=== PATIENT | male | born 2000 | race Caucasian/White ===

== ENCOUNTER 2024-06-16 04:49 | Emergency (ER) | payer MEDICAID, SELFPAY ==
--- NOTE | ~2024-06-16 | XR_ITS ---
Portable chest x-ray Comparison: None Clinical History: Chest tightness Findings: Lungs are clear, without focal consolidation or pleural effusion. Cardiomediastinal silho uette is unremarkable. Bones and soft tissues are unremarkable. Impression: Normal chest. Reviewed, dictated and finalized at location . ETING OPERATIONS ANALYST Impression: Normal chest.
[2024-06-16 04:52] VITALS: BP 130/88; PULSE 85; RESP 14; O2SAT 98
--- NOTE | 2024-06-16 04:55 | ED_ITS ---
HPI - General Adult General Chief complaint: Anxiety Stated complaint: Anxiety, Nausea Time Seen by Provider: 06/16/24 05:07 History of Present Illness HPI narrative: This is a 24-year-old male with history of anxiety presenting for anxiety. Patient is trying to go to sleep his mind was racing. This caused him to have an episode of nausea and vomiting and some chest tightness. Patient denies any fevers chills shortness of breath abdominal pain or URI symptoms. Patient is on hydroxyzine for his anxiety. He has appointment sees psychiatrist next week. No SI HI. Related Data Allergies Allergy/AdvReac Type Severity Reaction Status Date / Time No Known Allergies Allergy Unverified 04/05/14 17:03 [facility] Social History Social History Substance use type: does not use Exam Narrative: APPEARANCE: Anxious appearing Head: atraumatic. EYES: EOMI, NOSE: Atraumatic NECK: Trachea midline RESPIRATORY: No increased rate of breathing CTAB CARDIOVASCULAR: RRR, no peripheral edema ABDOMINAL: Non-distended soft nontender MUSCULOSKELETAl: No obvious deformities NEURO: Alert. Moving 4/4 extremities SKIN:: Warm, dry. Normal color PSYCHIATRIC: Anxious appearing Course Vital Signs Vital signs: Vital Signs Pulse Rate 85 06/16/24 04:52 Respiratory Rate 14 06/16/24 04:52 Blood Pressure 130/88 06/16/24 04:52 Pulse Oximetry 98 06/16/24 04:52 Oxygen Delivery Room Air 06/16/24 04:52 Pulse Rate 81 06/16/24 04:59 Respiratory Rate 18 06/16/24 04:59 Blood Pressure 130/88 06/16/24 04:59 Pulse Oximetry 100 06/16/24 04:59 Oxygen Delivery Room Air 06/16/24 04:52 Medical Decision Making [facility] Narrative Medical decision making narrative: -Course: 24-year-old male with anxiety presenting with increased anxiety. Chest x-ray and EKG unremarkable. No concerning findings on history and physical. Given Valium with improvement. Discharged follow-up with a psychiatrist. Given return precautions. Vital Signs Vital Signs: Vital Signs Pulse Rate 85 06/16/24 04:52 Respiratory Rate 14 06/16/24 04:52 Blood Pressure 130/88 06/16/24 04:52 Pulse Oximetry 98 06/16/24 04:52 Oxygen Delivery Room Air 06/16/24 04:52 Pulse Rate 81 06/16/24 04:59 Respiratory Rate 18 06/16/24 04:59 Blood Pressure 130/88 06/16/24 04:59 Pulse Oximetry 100 06/16/24 04:59 Oxygen Delivery Room Air 06/16/24 04:52 Discharge Plan Discharge Clinical Impression: Acute anxiety Patient Disposition: Home, Self-Care Condition: Stable Instructions: Antibiotic Form, Anxiety (ED) Additional Instructions: Please follow-up with your psychiatrist for further management. If you develop thoughts of harming herself or others return to the ED. Patient Language: Setswana
[2024-06-16 04:59] VITALS: BP 130/88; PULSE 81; RESP 18; O2SAT 100
[2024-06-16] MEDS: diazePAM INJ (*CRX) 10 MG/2 ML SYRINGE 5 MG IV PUSH (05:00)
--- NOTE | 2024-06-16 05:05 | ECG_ITS ---
Test Date: 2024-06-16 05:05:02 Measurements Intervals [place] Rate: 82 P: 87 TX: 132 QRS: 87 QRSD: 93 T: 54 QT: 341 QTc: 399 Interpretive Statements SINUS RHYTHM VOLTAGE CRITERIA FOR LVH ST ELEVATION IN ANTEROLAT/INF LEADS, PROBABLY EARLY REPOLARIZATION BASELINE ARTIFACT- I, II, III, AVR, AVL, AVF, V1-V6 BORDERLINE ECG No previous ECG available for comparison Electronically Signed On 06-16-2024 08:17:22 [employer] by Waldemar Lobo D.O.
--- OUTSIDE RECORDS SUMMARY | 2024-06-16 05:42 | XMS_ITS | Referral Summary ---
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 Role Phone Kiel Taylor MD Primary Care Provider [phone] Encounters Date Type Department Care Team Description 06/14/2024 Results Follow-Up [facility] Primary Care at [address] [place] [phone] Kiel Taylor MD 06/11/2024 Telephone [facility] Primary Care at [address] [place] [phone] Kiel Taylor MD 06/10/2024 Telephone [facility] Medical [facility] Primary Care at [address] [place] [phone] Kiel Taylor MD Recommendation Request 06/08/2024 2:20 PM WAIST PLEATER Lab [facility] [address] [place] [address] Fatigue, unspecified type; Excessive daytime sleepiness; Vitamin B12 deficiency; Vitamin D deficiency 06/08/2024 1:30 PM WAIST PLEATER Office Visit [facility] Gastroenterology at [address] [place] [phone] Helen Whitehead MD Nausea and vomiting, unspecified vomiting type (Primary Dx); Abdominal pain; Early satiety; Gastroesophageal reflux disease without esophagitis 06/04/2024 Orders Only [facility] Primary Care at [address] [phone] Kiel Taylor MD Anxiety (Primary Dx); PTSD (post-traumatic stress disorder) 06/02/2024 Telephone [facility] Primary Care at [address] [phone] Kiel Taylor MD Recommendation Request 06/02/2024 Orders Only [facility] Primary [facility] at [address] [phone] Kiel Taylor MD Abdominal pain; Early satiety; Gastroesophageal reflux disease without esophagitis; Fatigue, unspecified type; Positive LANI (antinuclear antibody); Weakness; Excessive daytime sleepiness; Tachycardia; Chest pain, unspecified type; Abnormal EKG; LVH (left ventricular hypertrophy) 06/02/2024 9:45 AM WAIST PLEATER Office Visit [facility] at [address] [phone] Kiel Taylor MD Annual physical exam (Primary Dx); Abdominal pain; Early satiety; Gastroesophageal reflux disease without esophagitis; Body mass index (BMI) less than 16.5; Laryngopharyngeal reflux (LPR); Excessive daytime sleepiness; Tachycardia; Abnormal EKG; LVH (left ventricular hypertrophy) 05/27/2024 Orders Only [facility] at [address] [phone] Kiel Taylor MD PTSD (post-traumatic stress disorder) (Primary Dx); Anxiety 05/27/2024 Telephone [facility] at [address] [phone] Kiel Taylor MD Referral Request from Last 3 Months Allergies No known active allergies Medications ondansetron (ZOFRAN) 4 mg tablet Take 1 tablet (4 mg total) by mouth every 8 (eight) hours as needed for nausea or vomiting 40 tablet 1 3 Active escitalopram (LEXAPRO) 20 mg tablet Take 1 tablet (20 mg total) by mouth daily 30 tablet 11 3 Active mirtazapine (REMERON) 7.5 mg tablet Take 1 tablet (7.5 mg total) by mouth nightly 90 tablet 4 Active Additional Information Patient not taking.Reported on 01/20/2024 hydrOXYzine (ATARAX) 25 mg tablet TAKE 1 TABLET(25 MG) BY MOUTH TWICE DAILY NEEDED FOR ANXIETY OR INSOMNIA 100 tablet [address] (PROTONIX) 40 mg EC tablet TAKE 1 TABLET(40 MG) BY MOUTH TWICE DAILY 200 tablet 1 5 Active sucralfate (CARAFATE) 1 gram tablet Take 1 tablet (1 g total) by mouth 4 (four) times a day for 14 days 56 tablet 5 Active cyanocobalamin (Vitamin B-12) 1,000 mcg tabletIndicati ons:Prevention of Vitamin B12 Deficiency Take 1 tablet (1,000 mcg total) by mouth daily 90 tablet 1 5 11/30/19 25 Active ergocalciferol (VITAMIN D) 50,000 unit capsule Take 1 capsule (50,000 Units total) by mouth once a week 12 capsule 4 5 06/02/19 26 Active metoclopramide (REGLAN) 10 mg tablet Take 1 tablet (10 mg total) by mouth 3 (three) times a day before meals 90 tablet 2 5 Active ergocalciferol (VITAMIN D) 50,000 unit capsule Take 1 capsule (50,000 Units total) by mouth once a week 12 capsule 4 3 06/02/19 25 Discontin ued(Reord er) cyanocobalamin (Vitamin B-12) 1,000 mcg tabletIndicati ons:Prevention of Vitamin B12 Deficiency Take 1 tablet (1,000 mcg total) by mouth daily 90 tablet 1 3 06/02/19 25 Discontin ued(Reord er) Active Problems Problem Noted Date Diagnosed Date Protein-calorie malnutrition, mild 06/12/2023 Depression 10/30/2022 Assessment & Plan (06/12/2023 11:44 AM WAIST PLEATER): Not at goal at this time For now continue escitalopram 20 mg every day, atarax [address] mg [address] new referral to psychaitry Fatigue 09/03/2022 Assessment & Plan (01/20/2024 2:38 PM CDT): Lab Results Component Value Date WBC 7.5 02/17/2023 HGB 16.6 02/17/2023 HCT 48.7 02/17/2023 MCV 85.7 02/17/2023 LABPLAT 323 02/17/2023 Normal labs, low vitamins/vit def Check new labs PTSD (post-traumatic stress disorder) 07/17/2022 Assessment & Plan (01/20/2024 2:38 PM CDT): Not at goal at this time For now continue escitalopram 20 mg every day, atarax 25 mg every day Will place new referral to psychaitry Assessment & Plan (06/12/2023 11:44 AM WAIST PLEATER): Not at goal at this time For now continue escitalopram 20 mg every day, atarax 25 mg every day Will place new referral to psychaitry Assessment & Plan (07/17/2022 2:10 PM CDT): Would recommend he continue therapy Starting ssri now - lexapro 10 mg every day rtc in 4 weeks Referral to psychiatry placed Other insomnia 05/06/2022 Assessment & Plan (09/23/2022 9:15 AM CDT): Hopefully will improve with treatment of his anxiety increased dose of escitalopram Assessment & Plan (05/06/2022 2:52 PM WAIST PLEATER): Not sleeping well but has been seeing a therapist, can try trazadone prn Anxiety 05/06/2022 Assessment & Plan (02/26/2023 12:20 PM CDT): C/w lexapro 20 mg every day and atarax 25 mg bid pern Stopped taking ambien and buspar prescribed by dr. Zaragoza due to feeling sluggish and tired But also noted to be vit d and vit b12 def Assessment & Plan (09/23/2022 9:14 AM CDT): Increase escitalopram to 20 mg daily. Recommend exercise and counseling. Assessment & Plan (07/17/2022 2:11 PM CDT): Started counselling at [facility] which didn't really help States that he was dx with anxiety and ptsd but was not able to get with psychaitry Will start lexapro 10 mg every day Assessment & Plan (05/06/2022 2:51 PM WAIST PLEATER): Stable at this time but having sleeping issues. States that he started seeing a counsellor at [facility] Annual physical exam 05/06/2022 Assessment & Plan (06/12/2023 11:43 AM WAIST PLEATER): Discussed lifestyle modifications, diet and exercise. Routine blood work ordered/reviewed today. Yearly vision and dental examinations. Assessment & Plan (05/06/2022 2:55 PM WAIST PLEATER): Discussed lifestyle modifications, diet and exercise. Routine blood work ordered/reviewed today. Yearly vision and dental examinations. Nasal mucositis (ulcerative) 12/06/2021 Assessment & Plan (05/06/2022 2:49 PM WAIST PLEATER): Stable following with ENT, recommend he follows up as he states that he still having issues Assessment & Plan (12/06/2021 3:55 PM CDT): Nasal saline spray (Simply saline, [employer], [place], [place]) 2 second sprays or 2 squeezes into each nostril while looking down over the sink, do not need to sniff in. Aquaphor apply pea-size amount into each nostril with a cotton tipped applicator, being carefully just to tuck it into each nostril, then massage soft portion of the outer nose to massage the ointment around inside the nose twice daily for at least 6 weeks May continue Neti-pot as needed Consider Bactroban if no improvement Body mass index (BMI) less than 16.5 11/13/2021 Assessment & Plan (06/02/2024 10:02 AM WAIST PLEATER): Wt Readings from Last 3 Encounters: 06/02/24 56.7 kg (125 lb 1.6 oz) 01/20/24 56.2 kg (123 lb 14.4 oz) 06/12/23 56 kg (123 lb 8 oz) BMI Readings from Last 3 Encounters: 06/02/24 17.46 kg/m 01/20/24 17.29 kg/m 06/12/23 17.23 kg/m Has gained some weight from previous, now above bmi 16.5. continue increasing caloric intake - follow up with GI Assessment & Plan (08/22/2022 1:44 PM CDT): Wt Readings from Last 3 Encounters: 08/22/22 54 kg (119 lb) 08/13/22 54.4 kg (120 lb) 07/17/22 55.3 kg (122 lb) BMI Readings from Last 3 Encounters: 08/22/22 16.60 kg/m 08/13/22 16.74 kg/m 07/17/22 17.08 kg/m Has gained some weight from previous, now above bmi 16.5. continue increasing caloric intake - follow up with GI Assessment & Plan (05/06/2022 2:34 PM WAIST PLEATER): Wt Readings from Last 3 Encounters: 05/06/22 56.2 kg (124 lb) 12/06/21 54.4 kg (119 lb 14.4 oz) 11/13/21 53.6 kg (118 lb 3.2 oz) BMI Readings from Last 3 Encounters: 05/06/22 17.29 kg/m 12/06/21 16.72 kg/m 11/13/21 16.49 kg/m Has gained some weight from previous, now above bmi 16.5. continue increasing caloric intake - follow up with GI Assessment & Plan (11/13/2021 11:27 AM CDT): Need to investigate further - check labs - refer to nutrition - may need to refer to GI as well Early satiety 11/13/2021 Other dysphagia 11/13/2021 Assessment & Plan (08/22/2022 1:49 PM CDT): Unsure of cause Negative egd Nothing to explain dysphagia Could be psychosomatic States that sx have improved Still has some stomach burnign and discomfort but n/v has improved Underweight 11/13/2021 Assessment & Plan (01/20/2024 2:38 PM CDT): Wt Readings from Last 3 Encounters: 01/20/24 56.2 kg (123 lb 14.4 oz) 06/12/23 56 kg (123 lb 8 oz) 02/26/23 54.4 kg (120 lb) BMI Readings from Last 7 Encounters: 01/20/24 17.29 kg/m 06/12/23 17.23 kg/m 02/26/23 16.74 kg/m 09/03/22 16.33 kg/m 08/22/22 16.60 kg/m 08/13/22 16.74 kg/m 07/17/22 17.08 kg/m Weight appears stable in the last 1 year - bmi fluctuates from 16.5 to 17 Assessment & Plan (08/22/2022 1:45 PM CDT): Wt Readings from Last 3 Encounters: 08/22/22 54 kg (119 lb) 08/13/22 54.4 kg (120 lb) 07/17/22 55.3 kg (122 lb) BMI Readings from Last 7 Encounters: 08/22/22 16.60 kg/m 08/13/22 16.74 kg/m 07/17/22 17.08 kg/m 05/06/22 17.29 kg/m 12/06/21 16.72 kg/m 11/13/21 16.49 kg/m 05/20/18 18.83 kg/m Weight appears stable in the last 1 year - bmi fluctuates from 16.5 to 17 Assessment & Plan (05/06/2022 2:36 PM WAIST PLEATER): unsure if related to dysphagia, he never had his barium swallow done but has gained some weight Assessment & Plan (11/13/2021 11:26 AM CDT): Unsure of cause could be due to current dysphagia - will check labs, refer to ENT and nutrition Nasal obstruction without choanal atresia 2018 Internal nasal lesion 05/24/2018 Assessment & Plan (05/24/2018 3:34 PM WAIST PLEATER): Patient is noted to have a mild excoriation along the left side of the caudal septum. Silver nitrate cautery was performed today. Topical ointment is recommended daily for one week. Patient is advised to refrain from any digital irritation of the area to allow to heal. Non-seasonal allergic rhinitis 03/31/2018 Assessment & Plan (03/31/2018 11:19 AM WAIST PLEATER): Patient has a history of allergic rhinitis - he is unsure of specific triggers. Patient should continue with nasal spray and daily irrigation. Patient should start on zyrtec daily for relief of his symptoms. Patient educated on proper nasal administration as well as how to perform saline irrigation. Discussed possible RAST testing in the future. GERD (gastroesophageal reflux disease) 8 Assessment & Plan (06/02/2024 10:04 AM WAIST PLEATER): Worsening sx Will refer back to GI for eval Add carafate to regimen Continue protonix 40 mg qd Assessment & Plan (09/23/2022 9:15 AM CDT): Patient encouraged to stop drinking soda, decrease tomato products intake, stop vaping in decreasing alcohol intake. Try pantoprazole 40 mg twice daily. GI referral recommended. Follow-up in 3 months for physical and fasting lab sooner if needed Assessment & Plan (08/22/2022 1:46 PM CDT): Continue protonix 40 bid Assessment & Plan (07/17/2022 2:06 PM CDT): Works for [employer] Due to 90 probation period was unable to get his scope done States that still having same acid reflux problems but he thinks anxiety is worse also Assessment & Plan (05/06/2022 2:48 PM WAIST PLEATER): Worsening gerd sx which had improved previously with ppi - will increase to protonix 40 bid and see if he has relief. Can start carafate for now and refer back to gi Assessment & Plan (11/13/2021 11:25 AM CDT): States that he doesn't have any gerd symptoms at this time. Will refer back to ENT due to his sx Laryngopharyngeal reflux (LPR) 03/31/2018 Assessment & Plan (06/02/2024 10:04 AM WAIST PLEATER): Worsening sx Refer back to GI Assessment & Plan (05/06/2022 2:35 PM WAIST PLEATER): Referred to ENT but was not evaluated for such, was referred to gi for egd but was cancelled Continues to have sx Will increase his nexium to twice daily 40 mg and see if that improves sx. Assessment & Plan (11/13/2021 11:26 AM CDT): Refer back to ENT due to dysphagia Assessment & Plan (05/24/2018 3:34 PM WAIST PLEATER): No problems patient is doing well. Patient is maintaining compliance with his ranitidine. Assessment & Plan (03/31/2018 11:21 AM WAIST PLEATER): Patient with a history of reflux. Review of HPI and exam consistent with uncontrolled reflux. Patient to start on zantac 300mg BID. Patient also educated on the importance of lifestyle modifications. If symptoms do not improve a swallow study will be obtained for further evaluation. Patient to follow up in 2 months. Deviated nasal septum 01/15/2018 Assessment & Plan (02/04/2018 2:43 PM CDT): Patient is doing excellent. Both nasal passages were debrided of crusting along the inferior turbinates. Patient's nasal airway is much improved. Patient is very happy with the postoperative outcome. Patient is to continue with saline nasal sprays. Patient can follow back up as needed. Assessment & Plan (01/15/2018 4:47 PM CDT): Patient demonstrates a right deviation of the nasal septum with a posterior septal spur causing impairment of the nasal airway. Patient is also noted to have bilateral inferior turbinate hypertrophy affecting the nasal airway. Patient is noted to have significant nasal valvular collapse during inspiratory effort with a positive modified Aleyda maneuver. Based on patient's history with prolonged difficulty breathing through his nasal airway in conjunction with my physical findings patient meets indications undergo a nasal septal reconstruction, inferior turbinate reduction and nasal valvuloplasty using Laterra nasal implant. A thorough discussion took place with the patient today pertaining to my treatment recommendations. All questions were answered to what appeared to be patient's understanding and satisfaction. After the procedure was explained in full the potential risk, complications, benefits and alternatives patient would like to proceed. Patient will be scheduled in a timely fashion. Hypertrophy of inferior nasal turbinate 01/16/20 18 Collapse of nasal valve 01/15/2018 Immunizations Immunization Administration Dates Next Due DTaP 03/02/2003, 0,1998,07/10,1998 HPV, Quadrivalent 10/04/2014,04/26/2013 HPV9 09/09/2017 Hep A, Pediatric 09/04/2009 Hep B, Adolescent or Pediatric 1998,1997,1998 HiB 09/03/1999, 9,1998,05/19 IPV 03/02/2003, 0,1998,05/19 Influenza, Quadrivalent, Spl it, Intramuscular 01/28/2019 Influenza, Unspecified 06/02/2024(Deferr ed: Patient Refused),01/20/2024(Deferred: Patient Refused),06/12/2023(Deferred: Patient Refused),05/06/2022(Deferred: Patient Refused),02/26/2022,06/26/2021(Deferre d: Patient Refused) MMR 03/02/2003,04/05/1999 Meningococcal ACWY, Unspecified 09/04/2009 Meningococcal Conjugate (Menveo) 10/04/2014 Tdap 07/17/2022,09/04/2009 Varicella 03/28/2008,04/05/1999 Social History Tobacco Use Types Packs/Day Years Used Date Smoking Tobacco: Former Cigarettes Passive Smoke Exposure: Never Smokeless Tobacco: Never Tobacco Cessation:Counseling Given: Not Answered Comments:smoked marijuana not cigarettes Alcohol Use Standard Drinks/Week Comments No 0 (1 standard drink = 0.6 oz pur e alcohol) AUDIT-C Answer Date Recorded Q1: How often do you have a drink containing alc ohol? Never 08/13/2022 Average Number of Drinks Not on file 023 Frequency of Binge Drinking Not on file 07/27 PHQ-2 Answer Date Recorded PHQ-2 Total Score (If total score is 3 or more points, staff should administer the PHQ-9) 0 06/02/2024 Personal Safety Answer Date Recorded Have you ever been in or are you currently in a harmful physical or emotional relationship or is someone making you feel afraid or unsafe? Denies 08/13/2022 Sex and Gender Information Value Date Recorded Sex Assigned at Not on file Legal Sex Male 1:48 AM WAIST PLEATER Gender Identity Not on file Sexual Orientation Not on file Last Filed Vital Signs Vital Sign Reading Time Taken Comments Blood Pressure 124/89 06/08/2024 1:21 PM WAIST PLEATER Pulse 96 06/08/2024 1:21 PM WAIST PLEATER Temperature 36.8 C (98.2 F) 06/12/2023 11:26 AM WAIST PLEATER Respiratory Rate 16 06/02/2024 9:38 AM WAIST PLEATER Oxygen Saturation 98% 06/08/2024 1:21 PM WAIST PLEATER Inhaled Oxygen Concentration - - Weight 56.2 kg (123 lb 14.4 oz) 06/08/2024 1:21 PM WAIST PLEATER Height 177.8 cm (5' 10 ) 06/08/2024 1:21 PM WAIST PLEATER Body Mass Index 17.78 06/08/2024 1:21 PM WAIST PLEATER Plan of Treatment Not on file Medical Devices Implanted Type Area Insurance Associate Device Identifier Shelf Expiration Date Model / Serial / Lot Latera Absorbable Nasal Implant Implanted:Qty: 1 on 01/22/2018 by Alexsander Escalante DO at [facility] Bilateral: Nose Other 10/31/2018 [employer] / / [id number] Description:Latera Absorbabl e Nasal Implant by [employer] Procedures Procedure Name Priority Date/Time Associated Diagnosis Comments VITAMIN B12 Routine 06/08/2024 2:23 PM WAIST PLEATER Vitamin B12 deficiency VITAMIN D 25 HYDROXY Routine 06/08/2024 2:23 PM WAIST PLEATER Vitamin D deficiency VITAMIN B6 Routine 06/08/2024 2:23 PM WAIST PLEATER Vitamin B12 deficiency TESTOSTERONE, TOTAL AND FREE, SERUM Routine 06/08/2024 2:23 PM WAIST PLEATER Fatigue, unspecified type Excessive daytime sleepiness ECG 12-LEAD Routine 06/02/2024 10:27 AM WAIST PLEATER Tachycardia HEPATITIS C ANTIBODY Routine 01/27/2024 2:26 PM CDT Need for hepatitis B screening test from Last 3 Months or Most Recently Relevant to Health Maintenance Results * Vitamin D 25 hydroxy (06/08/2024 2:23 PM WAIST PLEATER) Vitamin D 25-OH 35 30 - 80 ng/mL Blood 06/08/2024 2:23 PM WAIST PLEATER 06/08/2024 3:23 PM WAIST PLEATER us Kiel Taylor MD LAB BLOOD ORDERABLES Final Resul t HOWIE DONALD ([place]) 1 [facility] Department of Laboratories [place], [place] [id number] * Testosterone, Total and Free, Serum (06/08/2024 2:23 PM WAIST PLEATER) Testosterone 584 240 - 950 ng/dL [facility]ly [facility] Lab Comment: ADDITIONAL INFORMATION Testing performed by Liquid Chromatography-Tandem Mass Spectrometry (LC-MS/MS). This test was developed and its performance characteristics determined by [facility] in a manner consistent with CLIA requirements. This test has not been cleared or approved by the U.S. Food and Drug Administration. Test Performed by: [facility] [address] [place] [address] News Content Specialist: Mara Flores Ph.D.; CLIA# [id number] Testosterone, free 14.4 5.05 - 19.8 ng/dL HOWIE DONALD ([place]) Comment: ADDITIONAL INFORMATION This test was developed and its performance characteristics determined by [facility] in a manner consistent with CLIA requirements. This test has not been cleared or approved by the U.S. Food and Drug Administration. Blood 06/08/2024 2:23 PM WAIST PLEATER 06/08/2024 3:23 PM WAIST PLEATER Kiel Taylor MD LAB BLOOD ORDERABLES Final Resul t Performing Organization Address [facility] Co de Phone Number HOWIE DONALD ([place]) [address] [place] [address] [place] [address] [place] ref Lab * Vitamin B6 (06/08/2024 2:23 PM WAIST PLEATER) Pyridoxal phosphate (Vit B6) 6 5 - 50 mcg/L [place] ref [facility] Comment: ADDITIONAL INFORMATION This test was developed and its performance characteristics determined by [facility] in a manner consistent with CLIA requirements. This test has not been cleared or approved by the U.S. Food and Drug Administration. Test Performed by: [facility] [place] [address] News Content Specialist: Mara Flores Ph.D.; CLIA# [id number] Blood 06/08/2024 2:23 PM WAIST PLEATER 06/08/2024 3:23 PM WAIST PLEATER Kiel Taylor MD LAB BLOOD ORDERABLES Final Resul t Performing Organization Address [facility] Co de Phone Number HOWIE DONALD ([place]) 1 [facility] [place] [address] [place] ref Lab * Vitamin B12 (06/08/2024 2:23 PM WAIST PLEATER) Vitamin B12 424 230 - 1,250 pg/mL Blood 06/08/2024 2:23 PM WAIST PLEATER 06/08/2024 3:23 PM WAIST PLEATER us Kiel Taylor MD LAB BLOOD ORDERABLES Final Resul t HOWIE DONALD ([place]) 1 [facility] Department [place] [place] [address] * ECG 12 lead (06/02/2024 10:27 AM WAIST PLEATER) us Kiel Taylor MD ECG ORDERABLES Final Result * Hepatitis C antibody Blood (01/27/2024 2:26 PM CDT) Hep C Ab Nonreactive Nonreactive Comment: Interpretive Data Nonreactive: Antibodies to HCV not detected. Does NOT exclude the possibility of recent exposure to HCV. Equivocal: Equivocal for HCV antibodies. Supplemental molecular testing will be automatically performed to determine infection status in accordance with current CDC screening recommendations. Reactive: Positive for HCV antibodies. This may represent current or past HCV infection. Supplemental molecular testing will be automatically performed to determine current infection status in accordance with current CDC screening recommendations. Interpretive data was last revised on 2019. Testing performed by: [facility], [address] [place] [address]., [address] Blood 01/27/2024 2:26 PM CDT 01/27/2024 8:31 PM CDT us Kiel Taylor MD LAB MICROBIOLOGY - GENERAL ORDER MYRA Final Result HOWIE DONALD ([place]) 1 [facility] Department [place] [address] from Last 3 Months or Most Recently Relevant to Health Maintenance Insurance [facility] Member Subscriber Plan / Payer (Ef fective 2023-Present) Name:Andrés Goldberg Relation to Subscriber:Self Name:Andrés Goldberg Payer ID:[id number] (NAIC) Group ID:Not on file Type:MEDICAID RISK OTHER Address: ATTN: CLAIMS DEPT [address] [facility] [place] [phone] Advance Directives For more information, please contact: [phone] * Full Code (Latest Code Status on File) Date Activated Date Inactivated Comments 08/13/2022 9:58 AM 08/13/2022 3:30 PM * Full Code Date Activated Date Inactivated Comments 08/13/2022 9:58 AM 08/13/2022 9:58 AM Care 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
--- OUTSIDE RECORDS SUMMARY | 2024-06-16 05:42 | XMS_ITS | Encounter Summary ---
Author Organization [facility] Healthcare Address [address] [place] [address] Care Team Providers Care Pharmacy Scheduler Name Role Phone Kiel Taylor MD Primary Care Provider [phone] Reason for Visit * Reason Onset Date Comments Referral Request 05/27/2024 Encounter Details Date Type Department Care Team (Late st Contact Info) Description 05/27/2024 Telephone [facility] Medical Group Primary Care at [address] [address] Kiel Taylor MD [address] [place] [address] Referral Request Social History Tobacco Use Types Packs/Day Years Used Date Smoking Tobacco: Former Cigarettes Passive Smoke Exposure: Never Smokeless Tobacco: Never Comments:smoked marijuana no t cigarettes Alcohol Use Standard Drinks/Week Comments No [...] points, staff should administer the PHQ-9) 0 01/20/2024 Personal Safety Answer Date Recorded Have you ever been in or are you currently in a harmful physical or emotional relationship or is someone making you feel afraid or unsafe? Denies 08/13/2022 Sex and Gender Information Value Date Recorded Sex Assigned at Not on file Legal Sex Male 1:48 AM MICROBIOLOGY LABORATORY MANAGER Gender Identity Not on file Sexual Orientation Not on file documented as of this encounter Miscellaneous Notes * Telephone Encounter - Kourtney Kumar - 05/27/2024 4:35 PM CST Order updated and faxed to the provided number. OBIOLOGY LABORATORY MANAGER * Telephone Encounter - Edwige Clark - 05/27/2024 11:37 AM CST Referral Provider Name: Dr Robbie Barboza PsyD Specialty: Psychiartist Address: [address] [facility] [address] [facility], Zip: [place] [address] Diagnosis Code/Symptom/Reason Patient is being seen: Anxiety (F41.9) PTSD (post-traumatic stress disorder) (F43.10) Date of Appointment: need referral first NPI#: unknown Tax ID#: [id number] Is insurance in chart up to date? yes Additional Comments: Patient states the psychiatrist he was referred to never contacted him after he tried reaching out to them and left several messages. Patient found his own psychiatrist and askedfor referral to be sent to them [facility] so they can schedule him an appointment. Does message need to be routed? Yes-Action Needed OBIOLOGY LABORATORY MANAGER documented in this encounter Plan of Treatment Not on file documented as of this encounter Visit Diagnoses Not on filedocumented in this encounter Care Teams Pharmacy Scheduler Relationship Specialty Start Date End Date Kiel Taylor MD PCP - General Family Medicine 11/13/21 documented as of this encounter
--- OUTSIDE RECORDS SUMMARY | 2024-06-16 05:42 | XMS_ITS | Clinical Summary ---
Author Organization [facility] Address [address] [place] [address] Phone Care Team Providers Care Yarn Man Name Role Phone Kiel Taylor MD Primary Care Provider [phone] Allergies No known active allergies Medications hydrOXYzine (ATARAX) 25 MG Tablet Take 25 mg by mouth every 6 hours as needed. Active ondansetron (ZOFRAN-ODT) 4 MG TABLET DISPERSIBLE Take 4 mg by mouth every 8 hours as needed. Active bacitracin 500 UNIT/GM OintmentIndications :Nasal septal ulcer Coat left front nasal septum with ointment four times a day 56 g 3 07/08/19 19 Active famotidine (PEPCID) 20 MG Tablet Take 1 Tablet by mouth 2 times daily as needed for Heartburn. 30 Tablet 11/11/19 22 Active fluticasone (FLONASE) 50 MCG/ACT Suspension 2 Sprays by Nasal route daily. Use in each nostril as directed. 1 Bottle 01/16/20 18 025 Discontin ued(Med List Clean Up) Levocetirizine Dihydrochloride (XYZAL) 5 MG Tablet Take 1 Tab by mouth daily as needed (allergy relief) for up to 14 doses. 14 Tab 01/16/20 18 025 Discontin ued(Med List Clean Up) guaiFENesin (MUCINEX) 600 MG TABLET SR 12 HR Take 1 Tab by mouth 2 times daily. 60 Tab 05/15/19 19 025 Discontin ued(Med List Clean Up) cetirizine (ZYRTEC) 10 MG Tablet Take 1 Tab by mouth daily. 30 Tab 05/15/19 19 025 Discontin ued(Med List Clean Up) phenylephrine (ANA-SYNEPHRINE) 1 % Solution 2 Sprays by Nasal route every 6 hours as needed for Congestion. 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 2018 Encounters Date Type Department Care Team Description 06/02/2024 9:38 PM ROVING TELLER - 06/03/2024 1:35 AM ROVING TELLER Emergency [facility] Emergency [address] [place] [address] Manuel Mederos MD Palpitations Discharge Disposition: Discharged to home or Selfcare 06/02/2024 Travel from Last 3 Months Social History Tobacco Use Types Packs/Day Years Used Date Smoking Tobacco: Never Smokeless Tobacco: Never Alcohol Use Standard Drinks/Week Comments No 0 (1 standard drink = 0.6 oz pur e alcohol) Sex and Gender Information Value Date Recorded Sex Assigned at Not on file Legal Sex Male 8:49 PM CDT Gender Identity Not on file Sexual Orientation Not on file Last Filed Vital Signs Vital Sign Reading Time Taken Comments Blood Pressure 123/81 06/03/2024 12:45 AM ROVING TELLER Pulse 67 06/03/2024 12:45 AM ROVING TELLER Temperature 36.9 C (98.4 F) 06/02/2024 7:56 PM ROVING TELLER Respiratory Rate 24 06/03/2024 12:4 5 AM ROVING TELLER Oxygen Saturation 98% 06/03/2024 12: 45 AM ROVING TELLER Inhaled Oxygen Concentration - - Weight 57.5 kg (126 lb 12.2 oz) 06/02/2024 7:56 PM ROVING TELLER Height 180.3 cm (5' 11 ) 06/02/2024 7:56 PM ROVING TELLER Body Mass Index 17.68 06/02/2024 7:56 PM ROVING TELLER Plan of Treatment Health Maintenance Due Date Last Done Comments Hepatitis C Virus (HCV) Screening 1998 Influenza Immunization (#1) 2023 02/26/2022, 1 SARS-COV-2 Immunization ( - 2023- season) 2023 Respiratory Syncytial Virus (RSV) Immunization (Adult) (1 - 1-dose 75+ series) 2073 Hepatitis B Immunization Completed 999, 1998, 1998 Meningococcal Immunization (ACWY) Completed 10/04/2014, 09/04/2009 Human Papillomavirus (HPV) Immunization Completed 09/09/2017, 10/04/2014, 04/26/2013 DTaP/Tdap/Td Immunization Discontinued 2022, 09/04/2009, 03/02/2003, Additional history exists TdaP Immunization Completed 07/17/2022, 09/04/2009 Pneumococcal Immunization Combined Aged Out No longer eligible based on patient's age to complete this topic Rotavirus Immunization Aged Out No lo nger eligible based on patient's age to complete this topic Procedures Procedure Name Priority Date/Time Associated Diagnosis Comments RHYTHM STRIP 06/03/2024 12:00 AM ROVING TELLER XR CHEST 2 VIEWS STAT 06/02/2024 8:34 PM ROVING TELLER CBC WITH AUTO DIFFERENTIAL STAT 06/02/2024 8:12 PM ROVING TELLER TROPONIN I, HIGH SENSITIVITY (HSTRP) STAT 06/02/2024 8:12 PM ROVING TELLER THYROID STIMULATING HORMONE (TSH) STAT 06/02/2024 8:12 PM ROVING TELLER CMP (COMPREHENSIVE METABOLIC PANEL) STAT 06/02/2024 8:12 PM ROVING TELLER COMPLETE BLOOD COUNT (CBC) WITH DIFF STAT 06/02/2024 8:12 PM ROVING TELLER EKG 12 LEAD STAT 06/02/2024 8:02 PM ROVING TELLER EKG SCAN 06/02/2024 12:00 AM ROVING TELLER EKG SCAN 06/02/2024 12:00 AM ROVING TELLER from Last 3 Months Results * RHYTHM STRIP (06/03/2024 12:00 AM ROVING TELLER) 06/03/2024 us Provider Scan IMG ECG ORDERABLES Final Result RESULTING AGENCY * XR CHEST 2 VIEWS (06/02/2024 8:34 PM ROVING TELLER) Anatomical Region Laterality Modality Chest N/A Digital Radiogra phy 06/02/2024 8:57 PM ROVING TELLER Impressions 06/02/2024 9:00 PM ROVING TELLER IMPRESSION: Unremarkable chest radiographs. Narrative 06/02/2024 9:00 PM ROVING TELLER EXAM DESCRIPTION: XR CHEST 2 VIEWS REASON FOR STUDY: SOB, palpitations and chest tightness ongoing for the last 2 days. TECHNIQUE: Frontal and lateral views of the chest. COMPARISON: 11/10/2021 FINDINGS: LUNGS AND PLEURA: No focal airspace opacity, pleural effusion, or pneumothorax identified. HEART/MEDIASTINUM: Trachea midline. Cardiac silhouette normal in size. Mediastinal contours appear normal. BONES: Unremarkable. CHEST WALL: Unremarkable. UPPER ABDOMEN: Unremarkable. THIS IS AN ELECTRONICALLY VERIFIED FINAL REPORT 06/02/2024 8:57 PM - Electronically signed by Armani Christensen M.D. AR: SVEN Report ID: [id number] Reading Location: [id number] Procedure Note Armani Christensen MD - 06/02/2024 EXAM DESCRIPTION: XR CHEST 2 VIEWS REASON FOR STUDY: SOB, palpitations and chest tightness ongoing for the last 2 days. TECHNIQUE: Frontal and lateral views of the chest. COMPARISON: 11/10/2021 FINDINGS: LUNGS AND PLEURA: No focal airspace opacity, pleural effusion, or pneumothorax identified. HEART/MEDIASTINUM: Trachea midline. Cardiac silhouette normal in size. Mediastinal contours appear normal. BONES: Unremarkable. CHEST WALL: Unremarkable. UPPER ABDOMEN: Unremarkable. THIS IS AN ELECTRONICALLY VERIFIED FINAL REPORT 06/02/2024 8:57 PM - Electronically signed by Armani Christensen M.D. AR: SVEN Report ID: [id number] Reading Location: [id number] IMPRESSION: Unremarkable chest radiographs. Manuel Mederos MD IMG DIAGNOSTIC ORDERABLES Final Result * TROPONIN I, HIGH SENSITIVITY (HSTRP) (06/02/2024 8:12 PM ROVING TELLER) [facility] TROPONIN I, HIGH SENSITIVITY- [place] <3 <=35 ng/L 06/02/2024 8:50 PM ROVING TELLER [facility] Comment: High-sensitivity troponin I results are reported in ng/L making the result appear to be 1,000 times higher than the contemporary troponin I value which is reported in ng/ml. Results from [place]. Blood Venipuncture / Unknown 06/02/2024 8:12 PM ROVING TELLER 06/02/2024 8:12 PM ROVING TELLER Manuel Mederos MD CHEMISTRY ORDERABLES Ninfa l Result [facility] [address] [place] [address] * (ABNORMAL) CBC with Auto Differential (06/02/2024 8:12 PM ROVING TELLER) [facility] WBC 7.63 4.00 - 12.00 10(3)/mcL 06/02/2024 8:14 PM ROVING TELLER [facility] RBC 5.63 4.40 - 5.80 10(6)/mcL 06/02/2024 8:14 PM ROVING TELLER [facility] HEMOGLOBIN (HGB) 16.7(H) 13.0 - 16.5 g/dL 06/02/2024 8:14 PM ROVING TELLER [facility] HEMATOCRIT (HCT) 47.7 38.0 - 50.0 % 06/02/2024 8:14 PM ROVING TELLER [facility] MCV 84.7 82.0 - 96.0 fL 06/02/2024 8:14 PM [facility] MCH 29.7 26.0 - 32.0 pg 06/02/2024 8:14 PM [facility] MCHC 35.0 31.0 - 36.0 g/dL 06/02/2024 8:14 PM [facility] PLATELET COUNT 333 140 - 440 10(3)/mcL 06/02/2024 8:14 PM [facility] RDW 11.9 11.8 - 15.5 % 06/02/2024 8:14 PM [facility] MPV 9.9 8.0 - 12.6 fL 06/02/2024 8:14 PM [facility] NEUTROPHILS 67.2 40.0 - 68.0 % 06/02/2024 8:14 PM [facility] LYMPHOCYTES 23.9 19.0 - 49.0 % 06/02/2024 8:14 PM [facility] MONOCYTES 7.7 3.0 - 13.0 % 06/02/2024 8:14 PM [facility] EOSINOPHILS 0.7 0.0 - 8.0 % 06/02/2024 8:14 PM [facility] BASOPHILS 0.5 0.0 - 1.0 % 06/02/2024 8:14 PM [facility] ABSOLUTE NEUTROPHILS 5.13 1.40 - 5.30 10(3)/mcL 06/02/2024 8:14 PM [facility] ABSOLUTE LYMPHOCYTES 1.82 0.90 - 3.30 10(3)/mcL 06/02/2024 8:14 PM [facility] ABSOLUTE MONOCYTES 0.59 0.10 - 0.90 10(3)/mcL 06/02/2024 8:14 PM [facility] ABSOLUTE EOSINOPHIL 0.05 0.00 - 0.50 10(3)/mcL 06/02/2024 8:14 PM [facility] ABSOLUTE BASOPHILS 0.04 0.00 - 0.10 10(3)/mcL 06/02/2024 8:14 PM ROVING TELLER [facility] NRBC PER 100 WBC 0 06/02/19 25 8:14 PM ROVING TELLER [facility] Blood Venipuncture / Unknown 06/02/2024 8:12 PM ROVING TELLER 06/02/2024 8:12 PM ROVING TELLER Manuel Mederos MD HEMATOLOGY ORDERABLES Fin al Result Performing Organization Address City/[facility]/ZIP Co de Phone Number [facility] [address] [place] [address] * Thyroid Stimulating Hormone (TSH) [id number] (06/02/2024 8:12 PM ROVING TELLER) Pathologist [facility] TSH 1.232 0.300 - 5.000 mIU/L 06/02/2024 8:50 PM ROVING TELLER [facility] Blood Venipuncture / Unknown 06/02/2024 8:12 PM ROVING TELLER 06/02/2024 8:12 PM ROVING TELLER Manuel Mederos MD CHEMISTRY ORDERABLES Ninfa l Result Performing Organization Address [facility]/RUST Co de Phone Number [facility] [address] [place] [address] * (ABNORMAL) Comprehensive Metabolic Panel (Cmp) [id number] (06/02/2024 8:12 PM ROVING TELLER) SODIUM 141 136 - 145 mmol/L 06/02/2024 8:34 PM ROVING TELLER [facility] POTASSIUM 3.7 3.5 - 5.1 mmol/L 06/02/2024 8:34 PM ROVING TELLER [facility] CHLORIDE 105 98 - 107 mmol/L 06/02/2024 8:34 PM ROVING TELLER [facility] CO2, VENOUS 26 22 - 30 mmol/L 06/02/2024 8:34 PM ROVING TELLER [facility] ANION GAP 13.7 <18.0 mmol/L 06/02/2024 8:34 PM [facility] GLUCOSE 86 70 - 99 mg/dL 06/02/2024 8:34 PM [facility] BUN 10 9 - 21 mg/dL 06/02/2024 8:34 PM [facility] CREATININE, BLOOD 0.96 0.70 - 1.30 mg/dL 06/02/2024 8:34 PM [facility] BUN/CREATININE RATIO 10(L) 12 - 20 ratio 06/02/2024 8:34 PM [facility] TOTAL PROTEIN 8.2(H) 6.0 - 8.0 g/dL 06/02/2024 8:34 PM [facility] ALBUMIN 4.8 3.5 - 5.0 g/dL 06/02/2024 8:34 PM [facility] A/G RATIO 1.4 1.0 - 2.2 06/02/2024 8:34 PM [facility] CALCIUM 9.4 8.7 - 10.5 mg/dL 06/02/2024 8:34 PM [facility] T BILI 0.9 0.2 - 1.2 mg/dL 06/02/2024 8:34 PM [facility] SGOT (AST) 28 6 - 42 U/L 06/02/2024 8:34 PM [facility] SGPT (ALT) 37 6 - 55 U/L 06/02/2024 8:34 PM [facility] ALKALINE PHOSPHATASE 81 40 - 150 U/L 06/02/2024 8:34 PM [facility] GFR, ESTIMATED >60 >=60 06/02/2024 8:34 PM [facility] Comment: Creatinine Clearance is the preferred criteria for selecting drug dose adjustments in renally impaired patients. The GFR is provided as additional pertinent clinical information. GFR is reported in mL/min/1.73 sq m. Calculation based on the Chronic Kidney Disease Epidemiology Collaboration (CKD- EPI) equation refit without adjustment for race. GFR, EST. >60 >=60 025 8:34 PM ROVING TELLER [facility] GFR, EST. NONAFRICAN >60 >=60 06/02/2024 8:34 PM ROVING TELLER [facility] Blood Venipuncture / Unknown 06/02/2024 8:12 PM ROVING TELLER 06/02/2024 8:12 PM ROVING TELLER Manuel Mederos MD CHEMISTRY ORDERABLES Ninfa l Result [facility] [address] [place] [address] * EKG 12 LEAD (06/02/2024 8:02 PM ROVING TELLER) Ventricular Rate 95 BPM EXTERNAL EKG Atrial Rate 95 BPM EXTERNAL EKG P-R Interval 108 ms EXTERNAL EKG QRS Duration 84 ms EXTERNAL EKG Q-T Duration 310 ms EXTERNAL EKG QTC CALCULATION 389 ms EXTERNAL EKG P Winston 79 degrees EXTERNAL EKG R Winston 89 degrees EXTERNAL EKG T Winston 53 degrees EXTERNAL EKG 06/02/2024 8:02 PM ROVING TELLER Impressions EXTERNAL EKG - 06/08/2024 12:54 PM ROVING TELLER Sinus rhythm with sinus arrhythmia with short WA Otherwise normal ECG Confirmed by Nelda Leong ([id number]) on 06/08/2024 12:54:35 PM Narrative Procedure Note Nelda Leong MD - 06/08/2024 IMPRESSION: Sinus rhythm with sinus arrhythmia with short WA Otherwise normal ECG Confirmed by Nelda Leong ([id number]) on 06/08/2024 12:54:35 PM Manuel Mederos MD IMG ECG ORDERABLES Final Result Performing Organization Address City/[facility]/ZIP Co de Phone Number EXTERNAL EKG * EKG SCAN (06/02/2024 12:00 AM ROVING TELLER) Only the most recent of2 resultswithin the time period is included. 06/02/2024 us Provider Scan IMG ECG ORDERABLES Final Result RESULTING AGENCY from Last 3 Months Insurance MEDICAID [employer] Care Teams Yarn Man Relationship Specialty Start Date End Date Kiel Taylor MD [address] [place] [address] [address] PCP - General Electronic Organ Technician 11/10/21
--- OUTSIDE RECORDS SUMMARY | 2024-06-16 05:42 | XMS_ITS | Encounter Summary ---
Author Organization [facility] Healthcare Address [address] [place] [address] Care Team Providers Care Fixture Maker Name Role Phone Kiel Taylor MD Primary Care Provider Reason for Visit * Reason Onset Date Comments Recommendation Request 06/10/2024 Encounter Details Date Type Department Care Team (Late st Contact Info) Description 06/10/2024 Telephone [facility] Medical Group Primary Care at [address] [address] Kiel Taylor MD [address] [place] [address] Recommendation Request Social History Tobacco Use Types Packs/Day [...] on file Legal Sex Male 1:48 AM HEDIS COORDINATOR Gender Identity Not on file Sexual Orientation Not on file documented as of this encounter Miscellaneous Notes * Telephone Encounter - Stacy Kourtney - 06/11/2024 1:44 PM CST Sent referral on to [facility] referral pool. They will review pt records and then contact the pt to schedule. S COORDINATOR * Telephone Encounter - WilgelyImelda - 06/10/2024 1:29 PM CST Recommendation Request Note: This request is for a specialty recommendation, not an insurance referral. Specialty: rheumatology Why does the patient want to go to this specialist? Concerns that pt did not want to disclose but has discussed with Dr Taylor Additional Comments/Concerns: pt contacted the original recommended and was advised that they did not take insurance. Does message need to be routed? Yes-Action Needed S COORDINATOR documented in this encounter Plan of Treatment Not on file documented as of this encounter Visit Diagnoses Not on filedocumented in this encounter Care Teams Fixture Maker Relationship Specialty Start Date End Date Kiel Taylor MD PCP - General Family Medicine 11/13/21 documented as of this encounter
--- OUTSIDE RECORDS SUMMARY | 2024-06-16 05:42 | XMS_ITS | Encounter Summary ---
Author Organization [facility] Healthcare Address [address] [place] [address] Care Team Providers Care Sales Representative Public Utilities Name Role Phone Kiel Taylor MD Primary Care Provider [phone] Encounter Details Date Type Department Care Team (Late st Contact Info) Description 06/14/2024 Results Follow-Up [facility] Medical Group Primary Care at [address] [address] Kiel Taylor MD [address] [place] [address] Social History Tobacco Use Types Packs/Day Years [...] on file Legal Sex Male 1:48 AM UTILITY TRACTOR OPERATOR Gender Identity Not on file Sexual Orientation Not on file documented as of this encounter Miscellaneous Notes * Telephone Encounter - Abbie Cleveland - 06/15/2024 3:58 PM CST Call Back Caller???s Concern: Patient returning call to office, relayed results. Patient would like a call todiscuss B12 injections. Does message need to be routed? Yes-Action Needed ITY TRACTOR OPERATOR * Result Encounter Note - Kiel Taylor MD - 06/15/2024 11:02 AM CST Just to add to the above, it also looks like his vitamin b6 is borderline low and I would recommendstarting vitamin b6 supplement as well. 25 to 50 mcg daily ITY TRACTOR OPERATOR * Telephone Encounter - Nadya Whitley MA - 06/15/2024 10:48 AM UTILITY TRACTOR OPERATOR Left message on machine for patient to call back. Please relay results once the patient call back thanks ITY TRACTOR OPERATOR * Telephone Encounter - Nadya Whitley MA - 06/15/2024 10:47 AM UTILITY TRACTOR OPERATOR ----- Message from Kiel Taylor MD sent at 06/14/2024 8:38 AM UTILITY TRACTOR OPERATOR ----- Labs so far only show low vitamin b12, and borderline low vitamin d If he is not taking vitamin b12 he needs to start, if he is alreadyu taking it we may need to startweekly b12 injections As for vitamin D he needs to start taking at least 2000 units more than what he is currently taking ITY TRACTOR OPERATOR * Result Encounter Note - Kiel Taylor MD - 06/14/2024 8:38 AM CST Labs so far only show low vitamin b12, and borderline low vitamin d If he is not taking vitamin b12 he needs to start, if he is alreadyu taking it we may need to startweekly b12 injections As for vitamin D he needs to start taking at least 2000 units more than what he is currently taking ITY TRACTOR OPERATOR documented in this encounter Plan of Treatment Not on file documented as of this encounter Visit Diagnoses Not on filedocumented in this encounter Care Teams Sales Representative Public Utilities Relationship Specialty Start Date End Date Kiel Taylor MD PCP - General Family Medicine 11/13/21 documented as of this encounter
--- OUTSIDE RECORDS SUMMARY | 2024-06-16 05:42 | XMS_ITS | Encounter Summary ---
Author Organization [facility] Healthcare Address [address] [place] [address] Care Team Providers Care Tiger Machine Operator Name Role Phone Kiel Taylor MD Primary Care Provider [phone] Reason for Visit * Reason Onset Date Comments Recommendation Request 06/02/2024 Encounter Details Date Type Department Care Team (Late st Contact Info) Description 06/02/2024 Telephone [facility] Medical Group Primary Care at [address] [address] Kiel Taylor MD [address] [place] [address] Recommendation Request Social History Tobacco Use [...] on file Legal Sex Male 1:48 AM ROOM SERVICE WAITER Gender Identity Not on file Sexual Orientation Not on file documented as of this encounter Miscellaneous Notes * Telephone Encounter - Stacy Kourtney - 06/04/2024 8:51 AM CST New order placed and faxed to [facility] here in [place]. Pt should be contacted to schedule. SERVICE WAITER * Telephone Encounter - Luisa Ulloa - 06/02/2024 1:47 PM CST Recommendation Request Note: This request is for a specialty recommendation, not an insurance referral. Specialty: Pychiatrist. Why does the patient want to go to this specialist? Anxiety and medication. Additional Comments/Concerns: Patient stats his referral from 01-29-2024 is not good. He states thathe just now got a message that [facility] Doesn't take his Insurance as a Primary Insurance. They only accept it when it is a Secondary Insurance. Does message need to be routed? Yes-Action Needed SERVICE WAITER documented in this encounter Plan of Treatment Not on file documented as of this encounter Visit Diagnoses Not on filedocumented in this encounter Care Teams Tiger Machine Operator Relationship Specialty Start Date End Date Kiel Taylor MD PCP - General Family Medicine 11/13/21 documented as of this encounter
--- OUTSIDE RECORDS SUMMARY | 2024-06-16 05:42 | XMS_ITS | Clinical Summary ---
Author Organization [facility] Address [address] [place] [address] Care Team Providers Care Management Associate Name Role Phone Kiel Taylor MD Primary Care Provider Allergies No known active allergies Medications ondansetron [...] 10/30/2022 Assessment & Plan (06/12/2023 11:44 AM REFERENCE TEST CLERK): Not at goal at this time For [...] psychaitry Assessment & Plan (06/12/2023 11:44 AM REFERENCE TEST CLERK): Not at goal at this time For [...] escitalopram Assessment & Plan (05/06/2022 2:52 PM REFERENCE TEST CLERK): Not sleeping well but has been seeing [...] (07/17/2022 2:11 PM CDT): Started counselling at [facility] which didn't really help States that he was dx with anxiety and ptsd but was not able to get with psychaitry Will start lexapro 10 mg every day Assessment & Plan (05/06/2022 2:51 PM REFERENCE TEST CLERK): Stable at this time but having sleeping issues. States that he started seeing a counsellor at [facility] Annual physical exam 05/06/2022 Assessment & Plan (06/12/2023 11:43 AM REFERENCE TEST CLERK): Discussed lifestyle modifications, diet and exercise. Routine blood work ordered/reviewed today. Yearly vision and dental examinations. Assessment & Plan (05/06/2022 2:55 PM REFERENCE TEST CLERK): Discussed lifestyle modifications, diet and exercise. Routine blood work ordered/reviewed today. Yearly vision and dental examinations. Nasal mucositis (ulcerative) 12/06/2021 Assessment & Plan (05/06/2022 2:49 PM REFERENCE TEST CLERK): Stable following with ENT, recommend he follows up as he states that he still having issues Assessment & Plan (12/06/2021 3:55 PM CDT): Nasal saline spray (Simply saline, [employer], [place], [place]) 2 second sprays or 2 squeezes into [...] 11/13/2021 Assessment & Plan (06/02/2024 10:02 AM REFERENCE TEST CLERK): Wt Readings from Last 3 Encounters: 06/02/24 [...] GI Assessment & Plan (05/06/2022 2:34 PM REFERENCE TEST CLERK): Wt Readings from Last 3 Encounters: 05/06/22 [...] 17 Assessment & Plan (05/06/2022 2:36 PM REFERENCE TEST CLERK): unsure if related to dysphagia, he never had his barium swallow done but has gained some weight Assessment & Plan (11/13/2021 11:26 AM CDT): Unsure of cause could be due to current dysphagia - will check labs, refer to ENT and nutrition Nasal obstruction without choanal atresia 2018 Internal nasal lesion 05/24/2018 Assessment & Plan (05/24/2018 3:34 PM REFERENCE TEST CLERK): Patient is noted to have a mild excoriation along the left side of the caudal septum. Silver nitrate cautery was performed today. Topical ointment is recommended daily for one week. Patient is advised to refrain from any digital irritation of the area to allow to heal. Non-seasonal allergic rhinitis 03/31/2018 Assessment & Plan (03/31/2018 11:19 AM REFERENCE TEST CLERK): Patient has a history of allergic rhinitis [...] 8 Assessment & Plan (06/02/2024 10:04 AM REFERENCE TEST CLERK): Worsening sx Will refer back to GI [...] Plan (07/17/2022 2:06 PM CDT): Works for [employer] Due to 90 probation period was unable to get his scope done States that still having same acid reflux problems but he thinks anxiety is worse also Assessment & Plan (05/06/2022 2:48 PM REFERENCE TEST CLERK): Worsening gerd sx which had improved previously [...] 03/31/2018 Assessment & Plan (06/02/2024 10:04 AM REFERENCE TEST CLERK): Worsening sx Refer back to GI Assessment & Plan (05/06/2022 2:35 PM REFERENCE TEST CLERK): Referred to ENT but was not evaluated for such, was referred to gi for egd but was cancelled Continues to have sx Will increase his nexium to twice daily 40 mg and see if that improves sx. Assessment & Plan (11/13/2021 11:26 AM CDT): Refer back to ENT due to dysphagia Assessment & Plan (05/24/2018 3:34 PM REFERENCE TEST CLERK): No problems patient is doing well. Patient is maintaining compliance with his ranitidine. Assessment & Plan (03/31/2018 11:21 AM REFERENCE TEST CLERK): Patient with a history of reflux. Review [...] during inspiratory effort with a positive modified Langlade maneuver. 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 Encounters Date Type Department Care Team Description 06/14/2024 Results Follow-Up [facility] Primary Care at [address] [phone] Kiel Taylor MD 06/11/2024 Telephone [facility] Primary Care at [address] [phone] Kiel Taylor MD 06/10/2024 Telephone [facility] Primary Care at [address] [phone] Kiel Taylor MD Recommendation Request 06/08/2024 2:20 PM REFERENCE TEST CLERK Lab [facility] [address] [place] [address] Fatigue, unspecified type; Excessive daytime sleepiness; Vitamin B12 deficiency; Vitamin D deficiency 06/08/2024 1:30 PM REFERENCE TEST CLERK Office Visit [facility] Gastroenterology at [address] [place] [address] Helen Whitehead MD Nausea and vomiting, unspecified vomiting type (Primary Dx); Abdominal pain; Early satiety; Gastroesophageal reflux disease without esophagitis 06/04/2024 Orders Only [facility] Primary Care at [address] [phone] Kiel aTylor MD Anxiety (Primary Dx); PTSD (post-traumatic stress disorder) 06/02/2024 9:45 AM REFERENCE TEST CLERK Office Visit [facility] Primary Care at [address] [phone] Kiel Taylor MD Annual physical exam (Primary Dx); Abdominal pain; Early satiety; Gastroesophageal reflux disease without esophagitis; Body mass index (BMI) less than 16.5; Laryngopharyngeal reflux (LPR); Excessive daytime sleepiness; Tachycardia; Abnormal EKG; LVH (left ventricular hypertrophy) 06/02/2024 Telephone [facility] Primary Care at [address] [phone] Kiel Taylor MD Recommendation Request 06/02/2024 Orders Only [facility] Primary Care at [address] [phone] Kiel Taylor MD Abdominal pain; Early satiety; Gastroesophageal reflux disease without esophagitis; Fatigue, unspecified type; Positive LANI (antinuclear antibody); Weakness; Excessive daytime sleepiness; Tachycardia; Chest pain, unspecified type; Abnormal EKG; LVH (left ventricular hypertrophy) 05/27/2024 Orders Only [facility] Primary Care at [address] [place] [address] Kiel Taylor MD PTSD (post-traumatic stress disorder) (Primary Dx); Anxiety 05/27/2024 Telephone [facility] Primary Care at [address] [place] [address] Kiel Taylor MD Referral Request from Last 3 Months Immunizations Immunization Administration Dates Next Due DTaP [...] Conjugate (Menveo) 10/04/2014 Tdap 07/17/2022,09/04/2009 Varicella 03/28/2008,04/05/1999 Surgical History Surgery Date Site/Laterality Comments ESOPHAGOGASTRODUODENOSCOPY SEPTOPLASTY 04/28/2018 - 04/27/2019 Medical History Medical History Date Comments GERD (gastroesophageal reflux disease) H/O fracture of nose Anxiety Family History Medical History Relation Name Comments No Known Problems Father Drug abuse Mother Cancer Paternal Grandmother Relation Name Status Comments Father Mother Paternal Grandmother Social History Tobacco Use Types Packs/Day Years [...] on file Legal Sex Male 1:48 AM REFERENCE TEST CLERK Gender Identity Not on file Sexual Orientation Not on file Obstetrics History Last Filed Vital Signs Vital Sign Reading Time Taken Comments Blood Pressure 124/89 06/08/2024 1:21 PM REFERENCE TEST CLERK Pulse 96 06/08/2024 1:21 PM REFERENCE TEST CLERK Temperature 36.8 C (98.2 F) 06/12/2023 11:26 AM REFERENCE TEST CLERK Respiratory Rate 16 06/02/2024 9:38 AM REFERENCE TEST CLERK Oxygen Saturation 98% 06/08/2024 1:21 PM REFERENCE TEST CLERK Inhaled Oxygen Concentration - - Weight 56.2 kg (123 lb 14.4 oz) 06/08/2024 1:21 PM REFERENCE TEST CLERK Height 177.8 cm (5' 10 ) 06/08/2024 1:21 PM REFERENCE TEST CLERK Body Mass Index 17.78 06/08/2024 1:21 PM REFERENCE TEST CLERK Plan of Treatment Health Maintenance Due Date Last Done Comments Influenza Vaccine (#1) 2023 02/26/2022, 2018 Depression Screening 06/02/2025 06/02/2024, 01/20/2024, 06/12/2023, Additional history exists Regular Well Visit/Exam 18-64 06/02/2025 06/02/2024, 06/12/2023, 05/06/2022 DTaP/Tdap/Td Vaccine (8 - Td or Tdap) 07/17/2032 07/17/2022, 09/04/2009, 03/02/2003, Additional history exists Varicella Vaccines Completed 03/28/2008, 04/05/1999 HPV Vaccines Completed 09/09/2017, 06/0 12/2014, 04/26/2013 Hepatitis B Screening Completed 01/27/2024 , 1998, 1998, Additional history exists Hepatitis C Screening Completed 01/27/2024 Pneumococcal vaccine <65 Aged Out No longer eligible based on patient's age to complete this topic Medical Devices Implanted Type Area [employer] Device Identifier Shelf Expiration Date Model / Serial / Lot Latera Absorbable Nasal Implant Implanted:Qty: 1 on 01/22/2018 by Alexsander Escalante DO at [facility] Bilateral: Nose Other 10/31/2018 [employer] / / [id number] Description:Latera Absorbabl e Nasal Implant by [employer]. Procedures Procedure Name Priority Date/Time Associated Diagnosis Comments VITAMIN B12 Routine 06/08/2024 2:23 PM REFERENCE TEST CLERK Vitamin B12 deficiency VITAMIN D 25 HYDROXY Routine 06/08/2024 2:23 PM REFERENCE TEST CLERK Vitamin D deficiency VITAMIN B6 Routine 06/08/2024 2:23 PM REFERENCE TEST CLERK Vitamin B12 deficiency TESTOSTERONE, TOTAL AND FREE, SERUM Routine 06/08/2024 2:23 PM REFERENCE TEST CLERK Fatigue, unspecified type Excessive daytime sleepiness ECG 12-LEAD Routine 06/02/2024 10:27 AM REFERENCE TEST CLERK Tachycardia HEPATITIS C ANTIBODY Routine 01/27/2024 2:26 PM CDT Need for hepatitis B screening test from Last 3 Months or Most Recently Relevant to Health Maintenance Results * Vitamin D 25 hydroxy (06/08/2024 2:23 PM REFERENCE TEST CLERK) Vitamin D 25-OH 35 30 - 80 ng/mL Blood 06/08/2024 2:23 PM REFERENCE TEST CLERK 06/08/2024 3:23 PM REFERENCE TEST CLERK Kiel Taylor MD LAB BLOOD ORDERABLES Final Resul t Performing Organization Address [facility] Co de Phone Number HOWIE DONALD (MAE) 1 [facility] [employer] [address] * Testosterone, Total and Free, Serum (06/08/2024 2:23 PM REFERENCE TEST CLERK) Testosterone 584 240 - 950 ng/dL [place] ref Lab Comment: ADDITIONAL INFORMATION Testing performed by Liquid Chromatography-Tandem Mass Spectrometry (LC-MS/MS). This test was developed and its performance characteristics determined by [facility] in a manner consistent with CLIA requirements. This test has not been cleared or approved by the U.S. Food and Drug Administration. Test Performed by: [facility] [address] [place] [address] Practical Nurse Clinical Coordinator: Mara Flores Ph.D.; CLIA# [id number] Testosterone, free 14.4 5.05 - 19.8 ng/dL ODALYSPRASHANT DONALD (MAE) Comment: ADDITIONAL INFORMATION This test was developed and its performance characteristics determined by [facility] in a manner consistent with CLIA requirements. This test has not been cleared or approved by the U.S. Food and Drug Administration. Blood 06/08/2024 2:23 PM REFERENCE TEST CLERK 06/08/2024 3:23 PM REFERENCE TEST CLERK Kiel Taylor MD LAB BLOOD ORDERABLES Final Resul t Performing Organization Address [facility]/ZIP Co de Phone Number HOWIE DONALD (MAE) 1 [facility] [employer] [place] [address] [place] ref [facility] * Vitamin B6 (06/08/2024 2:23 PM REFERENCE TEST CLERK) [facility] Pyridoxal phosphate (Vit B6) 6 5 - 50 mcg/L [facility] Lab Comment: ADDITIONAL INFORMATION This test was developed and its performance characteristics determined by [facility] in a manner consistent with CLIA requirements. This test has not been cleared or approved by the U.S. Food and Drug Administration. Test Performed by: [facility] [address] [place] [address] Practical Nurse Clinical Coordinator: Mara Flores Ph.D.; CLIA# [id number] Blood 06/08/2024 2:23 PM REFERENCE TEST CLERK 06/08/2024 3:23 PM REFERENCE TEST CLERK us Kiel Taylor MD LAB BLOOD ORDERABLES Final Resul t Performing Organization Address [facility]/ZIP Co de Phone Number HOWIE AMH MAE) 1 [facility] [employer] [address] [facility] Lab * Vitamin B12 (06/08/2024 2:23 PM REFERENCE TEST CLERK) [facility] Vitamin B12 424 230 - 1,250 pg/mL Blood 06/08/2024 2:23 PM REFERENCE TEST CLERK 06/08/2024 3:23 PM REFERENCE TEST CLERK us Kiel Taylor MD LAB BLOOD ORDERABLES Final Resul t Performing Organization Address [facility]/ZIP Co de Phone Number HOWIE AMH (ULBPJ) 1 [facility] [place] [address] * ECG 12 lead (06/02/2024 10:27 AM REFERENCE TEST CLERK) us Kiel Taylor MD ECG ORDERABLES Final Result * Hepatitis C antibody Blood (01/27/2024 2:26 PM CDT) [facility] Hep C Ab Nonreactive Nonreactive Comment: Interpretive [...] last revised on 2019. Testing performed by: [facility], [address] [place] [address]., [id number] Blood 01/27/2024 2:26 PM CDT 01/27/2024 8:31 PM CDT us Kiel Taylor MD LAB MICROBIOLOGY - GENERAL ORDER MYRA Final Result HOWIE AMH ([place]) 1 [facility] Department [place] [address] from Last 3 Months or Most Recently Relevant to Health Maintenance Insurance [facility] Advance Directives For more information, please contact: [phone] * Full Code (Latest Code Status on File) Date Activated Date Inactivated Comments 08/13/2022 9:58 AM 08/13/2022 3:30 PM * Full Code Date Activated Date Inactivated Comments 08/13/2022 9:58 AM 08/13/2022 9:58 AM Care Teams Management Associate Relationship Specialty Start Date End Date Kiel Taylor MD PCP - General Family Medicine 11/13/21
== END 2024-06-16 05:58 | disposition home or self-care (01) ==
LOC: ANHED 05:40
PROVIDERS: Emergency Provider Emergency Medicine
DX: F41.9 Anxiety disorder, unspecified (principal); R94.31 Abnormal electrocardiogram [ECG] [EKG]
CPT/HCPCS: 71045; 93005; 96374; 99284; J3360